=== PATIENT | male | born 1990 | race American Indian/Alaskan Native ===

== ENCOUNTER 2017-06-12 16:21 | Emergency (ER) | payer OTHER ==
--- NOTE | 2017-06-12 17:00 | EDM.PDOC ---
ED HPI GENERAL MEDICAL PROBLEM - General Chief Complaint: Upper Extremity Injury/Pain Stated Complaint: HURT RIGHT SHOULDER AT WORK Time Seen by Provider: 06/12/17 16:40 Source of Information: Reports: Patient History Limitations: Reports: No Limitations - History of Present Illness INITIAL COMMENTS - FREE TEXT/NARRATIVE: 26 yo male was at work today reaching overhead to take some boxes down from a shelf overhead. He lost his balance and fell backward and the weight of the box ended up causing a R shoulder dislocation. He was able to reduce it at work. Is here now for recheck. Denies arm/hand numbness. Dislocated that shoulder about 10 yrs ago. Onset: Today Onset Date: 06/12/17 Onset Time: 15:40 Duration: Minutes: Location: Reports: Upper Extremity, Right Quality: Reports: Other (minimal pain at rest now.) Severity: Mild Improves with: Reports: Rest Worsens with: Reports: Movement Context: Reports: Trauma Associated Symptoms: Reports: No Other Symptoms Treatments SPI[employer]: Reports: Other (see below) (none) r shoulder Pain Score (Numeric/FACES): 0 - Related Data Allergies Allergy/AdvReac Type Severity Reaction Status Date / Time No Known Allergies Allergy Verified 06/12/17 16:37 Home Meds: Home Meds NK [No Known Home Meds] 06/12/17 [History] Past Medical History - Past Health History Medical/Surgical History: Denies Medical/Surgical History Social & Family History - Tobacco Use Smoking Status *Q: Never Smoker - Recreational Drug Use Recreational Drug Use: No Review of Systems - Review of Systems Review Of Systems: See Below Constitutional: Reports: No Symptoms Musculoskeletal: Reports: Shoulder Pain (mild on the right.) Skin: Reports: No Symptoms Neurological: Reports: No Symptoms ED EXAM, GENERAL - Physical Exam Exam: See Below Exam Limited By: No Limitations General Appearance: Alert, WD/WN, No Apparent Distress Extremities: Normal Inspection, Other (Good ROM with slight apprehension, palpation reveals normal anatomy without evidence of continued dislocation.). No: Pedal Edema, Arm Pain Neurological: Alert, Oriented, CN II-XII Intact, No Motor/Sensory Deficits Psychiatric: Normal Affect, Normal Mood Skin Exam: Warm, Dry, Intact, Normal Color, No Rash Lymphatic: No Adenopathy Course - Vital Signs Last Recorded V/S: Last Vital Signs Temp 35.6 C 06/12/17 16:38 Pulse 63 06/12/17 16:38 Resp 16 06/12/17 16:38 BP 123/69 06/12/17 16:38 Pulse Ox 98 06/12/17 16:38 Departure - Departure Time of Disposition: 17:00 Disposition: Home, Self-Care 01 Condition: Good Clinical Impression: History of reduction of closed dislocation - Discharge Information Referrals: PCP,None [Primary Care Provider] - Forms: ED Department Discharge Additional Instructions: Wear sling for support for the next 3 days, then resume your shoulder exercises. Recheck with your provider before resuming full duty at work.
== END 2017-06-12 17:06 | disposition home or self-care (01) ==
LOC: JP.ED 16:21
DX: M25.511 Pain in right shoulder (principal); Z98.890 Other specified postprocedural states
CPT/HCPCS: 99283

== ENCOUNTER 2017-07-09 13:08 | Emergency (ER) | payer SELFPAY ==
--- NOTE | 2017-07-09 13:37 | EDM.PDOC ---
ED HPI GENERAL MEDICAL PROBLEM - General Chief Complaint: Wound Recheck Stated Complaint: RECHECK RT SHOULDER/OK TO GO TO WORK Time Seen by Provider: 07/09/17 13:20 Source of Information: Reports: Patient History Limitations: Reports: No Limitations - History of Present Illness INITIAL COMMENTS - FREE TEXT/NARRATIVE: 27-year-old male was seen here for right shoulder dislocation a month ago, in today to get a note to return to work without restrictions. I think he was confused that we don't normally do back to work evaluations it is not having significant problems or weakness so I agreed to see him. - Related Data Allergies Allergy/AdvReac Type Severity Reaction Status Date / Time No Known Allergies Allergy Verified 06/12/17 16:37 Home Meds: Home Meds NK [No Known Home Meds] 06/12/17 [History] Past Medical History - Past Health History Medical/Surgical History: Denies Medical/Surgical History Musculoskeletal History: Reports: Other (See Below) Other Musculoskeletal History: right shoulder dislocated Social & Family History - Tobacco Use Smoking Status *Q: Never Smoker - Caffeine Use Caffeine Use: Reports: Soda - Recreational Drug Use Recreational Drug Use: No ED ROS GENERAL - Review of Systems Review Of Systems: See Below Constitutional: Denies: Fever Respiratory: Denies: Shortness of Breath Cardiovascular: Denies: Chest Pain GI/Abdominal: Denies: Nausea, Vomiting Skin: Reports: No Symptoms Neurological: Denies: Paresthesia ED EXAM, GENERAL - Physical Exam Exam: See Below Exam Limited By: No Limitations General Appearance: Alert, No Apparent Distress Respiratory/Chest: No Respiratory Distress Extremities: Other (Patient has full active and passive range of motion of both shoulders without hesitancy or weakness. No significant palpation tenderness around the shoulder.) Course - Vital Signs Last Recorded V/S: Last Vital Signs Temp 95.6 F 07/09/17 13:46 Pulse 95 07/09/17 13:46 Resp 16 07/09/17 13:46 BP 135/81 07/09/17 13:46 Pulse Ox 99 07/09/17 13:46 - Re-Assessments/Exams Free Text/Narrative Re-Assessment/Exam: 07/09/17 13:35 I filled the patient's paperwork to return to work without restrictions, he'll recheck if he runs into problems or return to ER if more significant concerns develop or he has another injury. Departure - Departure Time of Disposition: 13:47 Disposition: Home, Self-Care 01 Clinical Impression: Dislocation of right scapula, subsequent encounter - Discharge Information Instructions: Shoulder Dislocation, [id number] Referrals: PCP,None [Primary Care Provider] - Forms: ED Department Discharge Care Plan Goals: Return to work without restrictions, increase activity as tolerated. Recheck at the clinic if you develop concerns or return to ER if you sustain a reinjury.
== END 2017-07-09 13:47 | disposition home or self-care (01) ==
LOC: JP.ED 13:08
DX: S43.004D Unspecified dislocation of right shoulder joint, subsequent encounter (principal); X58.XXXD Exposure to other specified factors, subsequent encounter
CPT/HCPCS: 99283